=== PATIENT | male | born 1985 | race Caucasian/White ===

== ENCOUNTER 2017-05-19 21:51 | Emergency (ER) | payer OTHER, BC ==
[2017-05-19] MEDS ORDERED: PREDNISONE 20 MG TABLET PO ONE (22:54)
--- NOTE | 2017-05-19 22:59 | ER Document Report ---
ED General - General Chief Complaint: Rash Stated Complaint: RASH Time Seen by Provider: 05/19/17 22:51 TRAVEL OUTSIDE OF THE [place] 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 Patient states over the last week he has developed a itchy at times sometimes burning rash around his right lateral orbital region, cheek face, and a couple other scattered areas of his body. He had some type of telemedicine consult yesterday and was put on antifungal cream. 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 No history of MRSA. No other modifying factors, no other associated symptoms, no other provocative or palliative factors. - Related Data Allergies/Adverse Reactions: No Known Allergies Allergy (Unverified 05/19/17 21:53) Past Medical History - Social History Smoking Status: Never Smoker Drug Abuse: None Family History: None - Medical History Medical History: Negative Review of Systems - Review of Systems Notes: Review of systems as in the history of present illness, otherwise negative. Physical Exam - Vital signs Vitals: Temp Pulse Resp BP Pulse Ox 98.4 F 55 L 18 133/73 H 98 05/19/17 22:25 05/19/17 22:25 05/19/17 22:25 05/19/17 22:25 05/19/17 22:25 - Notes Notes: General: Well developed . HEENT: Normocephalic, atraumatic. Pupils equal round reactive to light. No JVD. Chest: No trauma. Respiratory: Good air exchange, normal excursion. Cardiac: Regular rhythm. No murmurs or gallops. Abdomen: Soft, benign. Nondistended. Nontender. Back: No asymmetry or gross abnormality. Motor: Grossly normal power and tone. Neurologic: Alert, nonfocal. Cranial nerves II-12 are intact. Sensation intact. Vascular: Well perfused. Normal peripheral pulses. Skin: No petechiae or purpura. There are some scaly mildly erythematous areas about the right lateral orbital region, right cheek and chest. They have a consistency of possible dermatitis versus a secondary infection. Less likely impetigo as there is no honey colored crusting but this would be considered. Course - Re-evaluation Re-evalutation: 05/19/17 23:36 This is a well-appearing male with the after mentioned symptoms. I do not think this is fungal as he has no real risk for this. Would consider an atypical bacterial infection or cellulitis, consider MRSA, consider nonspecific dermatitis. Good air on the side of caution and cover him for bacterial infection as well as dermatitis, is given a prescription for Keflex, Bactrim and prednisone. - Vital Signs Vital signs: Temp Pulse Resp BP Pulse Ox 98.4 F 55 L 18 133/73 H 98 05/19/17 22:25 05/19/17 22:25 05/19/17 22:25 05/19/17 22:25 05/19/17 22:25 Discharge - Discharge Clinical Impression: Dermatitis Cellulitis Qualifiers: Site of cellulitis: face Qualified Code(s): L03.211 - Cellulitis of face Condition: Good Disposition: HOME, SELF-CARE Instructions: Contact Dermatitis ([facility]), Cellulitis ([facility]), Corticosteroid Medication ([facility]) Prescriptions: Cephalexin Monohydrate [Keflex 500 mg Capsule] 500 mg PO Q6H 7 Days capsule Prednisone [Deltasone 20 mg Tablet] 1 tab PO DAILY 5 Days tablet Sulfamethoxazole/Trimethoprim [Bactrim Ds Tablet] 1 each PO BID 7 Days tablet Referrals: HAO EVLASCO MD [Primary Care Provider] - Follow up as needed
[2017-05-19 23:43] VITALS: BP 129/71
== END 2017-05-19 23:43 | disposition home or self-care (01) ==
LOC: ER 21:51
DX: L30.9 Dermatitis, unspecified (principal); L03.211 Cellulitis of face
CPT/HCPCS: 99282; J7512